=== PATIENT | female | born 1955 | race Caucasian/White ===

== ENCOUNTER 2018-11-25 03:00 | Emergency (ER) | payer OTHER ==
[~2018-11-25] VITALS: Ht 149.9 cm; Wt 73.9 kg
[2018-11-25 05:24] VITALS: BP 145/70
== END 2018-11-25 05:24 | disposition home or self-care (01) ==
LOC: ED 03:00
DX: J40 Bronchitis, not specified as acute or chronic (principal); J06.9 Acute upper respiratory infection, unspecified
CPT/HCPCS: J1885

== ENCOUNTER 2019-05-31 02:52 | Emergency (ER) | payer OTHER ==
[~2019-05-31] VITALS: Ht 152.4 cm; Wt 67.8 kg
[2019-05-31 02:57] VITALS: Ht 152.4 cm; Wt 67.8 kg
[2019-05-31 07:04] VITALS: BP 127/57
== END 2019-05-31 07:04 | disposition home or self-care (01) ==
LOC: ED 02:52
DX: M54.5 Low back pain (principal); Z98.890 Other specified postprocedural states
CPT/HCPCS: J1885; J2270

== ENCOUNTER 2020-06-12 13:32 | Emergency (ER) | payer OTHER, SELFPAY ==
[~2020-06-12] VITALS: Ht 152.4 cm; Wt 74.8 kg
[2020-06-12 13:34] VITALS: Ht 152.4 cm; Wt 74.8 kg
[2020-06-12 14:59] VITALS: BP 165/71
== END 2020-06-12 14:59 | disposition home or self-care (01) ==
LOC: ED 13:32
DX: U07.1 COVID-19 (principal); J12.89 Other viral pneumonia
CPT/HCPCS: U0003